=== PATIENT | male | born 2000 ===

== ENCOUNTER 2023-11-27 07:42 | Outpatient (OUT) | payer MEDICAID, SELFPAY ==
--- NOTE | 2023-11-27 | XR_ITS ---
[facility] [id number] Patient Name: SHIRLEY RUBALCAVA MRN: [id number] date: 2000 Sex: M Assigned Patient Location: Current Patient Location: Accession/Order Number: [id number] Exam Date: 11/27/2023 08:08 Report Date: 11/28/2023 07:04 At the request of: KAILASH BANDA Procedure: XR finger RT min 2V PROCEDURE: XR finger RT min 2V COMPARISON: None. HISTORY: RIGHT THUMB PAIN FINDINGS: BONES:No fracture, acute abnormality, or significant arthropathy. SOFT TISSUES:Negative. No visible soft tissue swelling. EFFUSION:None visible. OTHER: Negative. XR/XR finger RT min 2V IMPRESSION: No acute abnormality Electronically authenticated by: MAYITO LIMA Date: 11/28/2023 07:04
== END 2023-11-27 07:43 | disposition home or self-care (01) ==
LOC: EC 07:46
PROVIDERS: Visit Provider Orthopaedic Surgery
DX: M79.644 Pain in right finger(s) (principal)
CPT/HCPCS: 73140